=== PATIENT | female | born 2000 | race Two or more races ===

== ENCOUNTER 2023-02-24 12:16 | Day surgery (SDC) | payer OTHER ==
[2023-02-24 12:45] VITALS: BMI 29.4
[2023-02-24] MEDS ORDERED: hydrALAZINE 20 MG/ML VIAL SLOW IVP PRN (14:54)
== END 2023-02-24 14:54 | disposition home or self-care (01) ==
LOC: CSHLD/OP 12:16
PROVIDERS: ATTEND Obstetrics & Gynecology
DX: O47.1 False labor at or after 37 completed weeks of gestation (principal); Z79.899 Other long term (current) drug therapy; Z3A.39 39 weeks gestation of pregnancy
CPT/HCPCS: 99283

== ENCOUNTER 2023-03-05 03:36 | Day surgery (SDC) | payer OTHER ==
[2023-03-05] MEDS ORDERED: hydrALAZINE 20 MG/ML VIAL SLOW IVP PRN (04:06)
== END 2023-03-05 06:48 | disposition home or self-care (01) ==
LOC: CSHLD/OP 03:36
PROVIDERS: ATTEND Obstetrics & Gynecology
DX: O47.1 False labor at or after 37 completed weeks of gestation (principal); Z3A.40 40 weeks gestation of pregnancy; Z79.899 Other long term (current) drug therapy
CPT/HCPCS: 99283

== ENCOUNTER 2023-03-09 18:00 | Inpatient (IN) | payer MEDICAID, OTHER ==
[2023-03-10] MEDS ORDERED: Bupivacaine 0.25% HCL 30 ML VIAL ONE (08:00)
[2023-03-10] MEDS ORDERED: Penicillin G Potassium 5 MILL.UNITS in Sodium Chloride 0.9% 100 ML IVPB SCH (09:05)
[2023-03-10] MEDS ORDERED: Oxytocin 30 units/NS 500 ML 500 ML IV SCH ×4 (09:05→19:19)
[2023-03-10] MEDS ORDERED: HYDROcodone/Acetaminophen 5/325 mg Tablet PO PRN ×4 (09:05→19:19)
[2023-03-10] MEDS ORDERED: Ondansetron PF 4 MG/2 ML Vial IVP PRN ×3 (09:05→19:19)
[2023-03-10] MEDS ORDERED: Lidocaine 1% (PF) 30 ML VIAL SC PRN (09:05)
[2023-03-10] MEDS ORDERED: hydrALAZINE 20 MG/ML VIAL SLOW IVP PRN ×2 (09:05→19:19)
[2023-03-10] MEDS ORDERED: Ibuprofen 800 MG TAB PO PRN (09:05)
[2023-03-10] MEDS ORDERED: fentaNYL 50 mcg/mL 1 mL Vial SLOW IVP PRN (09:05)
[2023-03-10] MEDS ORDERED: Promethazine HCl 25 MG/ML VIAL IM PRN ×2 (09:05→14:25)
[2023-03-10] MEDS ORDERED: Oxytocin 30 units/NS 500 ML 500 ML ONE (09:18)
[2023-03-10] MEDS ORDERED: Penicillin G Potassium 5 MILL.UNITS VIAL ONE (09:18)
[2023-03-10] MEDS ORDERED: Sodium Chloride 0.9% 100 ML ONE (09:19)
[2023-03-10] MEDS: Lactated Ringer's 1,000 ML IV SCH ×2 (09:30→14:00)
[2023-03-10 10:02] VITALS: BMI 29.6
[2023-03-10 10:23] LABS: Hematocrit 33.3 % (34.9-44.5); Hemoglobin 10.8 g/dL (12.0-15.5); Mean Corpuscular HGB CONC 32.4 g/dL (32.0-36.0); Mean Corpuscular Hemoglobin 28.6 pg (27.0-33.0); Mean Corpuscular Volume 88.1 fl (81.6-98.3); Platelet Count 203 10x3/uL (150-450); RBC Distribution Width 13.7 % (11.5-14.5); Red Blood Cell (RBC) Count 3.78 10x6/uL (3.90-5.03); White Blood Cell (WBC) Count 11.1 10x3/uL (3.5-10.5)
[2023-03-10 10:59] LABS: HBSAg Index 0.21 S/CO (0-0.99); Hep B Surf Ag - L&D Non-Reactive S/CO (NonReactive)
[2023-03-10 11:00] LABS: Syphilis Antibody Nonreactive (Nonreactive); Syphilis Antibody Index 0.13 S/CO (<1.00 Non-Reactive)
[2023-03-10] MEDS ORDERED: fentaNYL/Ropivacaine Epidural 100 ML ONE (13:35)
[2023-03-10] MEDS: Penicillin G 2.5 MILL.units 2.5 MILL.UNITS in Premix 1 BAG IVPB SCH (14:00)
[2023-03-10] MEDS ORDERED: Acetaminophen 325 MG TAB PO PRN (14:25)
[2023-03-10] MEDS ORDERED: ePHEDrine Sulfate 50 MG/10 ML VIAL SLOW IVP PRN (14:25)
[2023-03-10] MEDS ORDERED: Moisturizing Cream (Eucerin) 113 GM JAR TOP PRN (14:25)
[2023-03-10] MEDS ORDERED: diphenhydrAMINE 50 MG/ML VIAL IVP PRN (14:25)
[2023-03-10] MEDS ORDERED: Lactated Ringer's 500 ML IV PRN (14:25)
[2023-03-10] MEDS ORDERED: Naloxone HCl 0.4 mg/ml Vial IVP PRN ×2 (14:25)
[2023-03-10] MEDS ORDERED: fentaNYL 2 mcg/Ropivacaine 0.2% Epidural 100 ML CADD EPIDURAL SCH (14:30)
[2023-03-10] MEDS ORDERED: Communication Order-Pharmacy FS SCH (14:30)
[2023-03-10] MEDS ORDERED: Lanolin Ointment 7 GM TUBE TOP PRN (19:19)
[2023-03-10] MEDS ORDERED: Benzocaine-Menthol 82.5 ML CAN TOP PRN (19:19)
[2023-03-10] MEDS ORDERED: Bisacodyl 10 MG SUPP PR PRN (19:19)
[2023-03-10] MEDS ORDERED: diphenhydrAMINE 25 MG CAP PO PRN (19:19)
[2023-03-10] MEDS ORDERED: Preparation H Ointment 28 GM TUBE PR PRN (19:19)
[2023-03-10] MEDS ORDERED: Milk Of Magnesia 30 ML UDCUP PO PRN (19:19)
[2023-03-10] MEDS ORDERED: Boostrix 0.5 ML (Tdap) VIAL (>/=7 yrs of age) IM ONE (19:19)
[2023-03-10] MEDS ORDERED: Ferrous Sulfate 325 MG TAB PO SCH (20:00)
[2023-03-10] MEDS: Docusate 100 MG CAP PO SCH (22:03)
[2023-03-10] MEDS: Ibuprofen 800 MG TAB PO SCH (22:03)
[2023-03-11] MEDS: Ibuprofen 800 MG TAB PO SCH ×3 (05:33→22:00)
[2023-03-11] MEDS: Penicillin G 2.5 MILL.units 2.5 MILL.UNITS in Premix 1 BAG IVPB SCH (07:48)
[2023-03-11] MEDS: Docusate 100 MG CAP PO SCH ×2 (09:18→22:00)
[2023-03-11] MEDS: Ferrous Sulfate 325 MG TAB PO SCH ×2 (09:18→17:08)
[2023-03-11] MEDS: Prenatal Vitamin 1 TAB PO SCH (09:18)
[2023-03-12] MEDS: Ibuprofen 800 MG TAB PO SCH ×2 (06:08→12:59)
[2023-03-12 07:56] VITALS: BP 134/77; TEMP 98.3
[2023-03-12] MEDS: Ferrous Sulfate 325 MG TAB PO SCH (08:59)
[2023-03-12] MEDS: Prenatal Vitamin 1 TAB PO SCH (09:00)
[2023-03-12] MEDS: Docusate 100 MG CAP PO SCH (09:00)
== END 2023-03-12 15:55 | disposition home or self-care (01) | DRG 807 ==
LOC: CSHLD 03-10 08:52 → CSHPED 03-10 20:15
PROVIDERS: ADMIT Obstetrics & Gynecology; ATTEND Obstetrics & Gynecology
PROC: 10E0XZZ Delivery of Products of Conception, External Approach (ICD-10-PCS; principal; 2023-03-10)
PROC: 0KQM0ZZ Repair Perineum Muscle, Open Approach (ICD-10-PCS; 2023-03-10)
PROC: 10907ZC Drainage of Amniotic Fluid, Therapeutic from Products of Conception, Via Natural or Artificial Opening (ICD-10-PCS; 2023-03-10)
DX: O48.1 Prolonged pregnancy (principal); Z37.0 Single live birth; O48.0 Post-term pregnancy; Z3A.41 41 weeks gestation of pregnancy; O70.1 Second degree perineal laceration during delivery
CPT/HCPCS: 36415; 51702; 85027; 86780; 86850; 86900; 86901; 87340; J2540; J2590; J3010; J3490; J7120; S0020

== ENCOUNTER 2023-03-20 18:56 | Emergency (ER) | payer OTHER ==
[2023-03-20] MEDS ORDERED: Acetaminophen 500 MG TAB ONE ×2 (19:40→19:58)
[2023-03-20 20:03] LABS: #Basophils 0.1 10x3/uL (0.0-0.2); #Eosinphils 0.1 10x3/uL (0.0-0.5); #Monocytes 0.8 10x3/uL (0.0-1.1); #Neutrophils 13.2 10x3/uL (1.5-8.4); %Basophils 0.3 % (0.0-2.0); %Eosinophils 0.4 % (0.0-6.0); %Lymphocytes 7.8 % (18.0-47.0); %Monocytes 5.4 % (0.0-10.0); %Neutrophils 85.8 % (40.0-75.0); Hematocrit 36.3 % (34.9-44.5); Hemoglobin 11.8 g/dL (12.0-15.5); Mean Corpuscular HGB CONC 32.5 g/dL (32.0-36.0); Mean Corpuscular Hemoglobin 28.5 pg (27.0-33.0); Mean Corpuscular Volume 87.7 fl (81.6-98.3); Platelet Count 227 10x3/uL (150-450); RBC Distribution Width 14.2 % (11.5-14.5); Red Blood Cell (RBC) Count 4.14 10x6/uL (3.90-5.03); White Blood Cell (WBC) Count 15.3 10x3/uL (3.5-10.5)
[2023-03-20 20:25] LABS: ALT (SGPT) 19 U/L (8-55); AST (SGOT) 19 U/L (5-34); Albumin 3.9 g/dL (3.5-5.0); Alkaline Phosphatase 150 U/L (40-110); Anion Gap 13 mmol/L (10-20); BUN (Urea Nitrogen) 15 mg/dL (7.0-18.7); Bilirubin, Total 0.5 mg/dL (0.2-1.2); Calc. Creatinine Clearance 0 mL/min (70-130); Calcium 9.6 mg/dL (7.8-10.44); Carbon Dioxide 22 mmol/L (22-29); Chloride 107 mmol/L (98-107); Estimated GFR 104; Globulin 3.1 g/dL (2.4-3.5); Glucose 96 mg/dL (70-105); Potassium 3.9 mmol/L (3.5-5.1); Sodium 138 mmol/L (136-145)
[2023-03-20 20:33] LABS: SARS-CoV-2 NAA Rapid Test Not Detected (NotDetected)
[2023-03-20] MEDS ORDERED: Cefepime 2 GM VIAL ONE (20:34)
[2023-03-20] MEDS ORDERED: Vancomycin 1 GM VIAL ONE (20:34)
[2023-03-20] MEDS ORDERED: Ketorolac Tromethamine 30 MG (1 mL) VIAL ONE (21:31)
[2023-03-20 21:33] LABS: Bilirubin Neg (Negative); Blood, Urine 150 (Negative); Clarity Slightly Cloudy (Clear); Glucose, Urine (Dipstick) Normal (Negative); Ketone, Urine Negative (Negative); Leukocyte 500 (Negative); Nitrite Negative (Negative); Protein, Urine (Dipstick) Negative (Neg-Trace); Urobilinogen Normal mg/dL (Less than 2)
[2023-03-20 21:42] LABS: Bacteria/HPF None Seen HPF (None Seen); CAUTI Indications for Culture Fever or rigors; Squamous Epithelial 0-3 HPF (0-3); Transitional Epithelial 0-3 HPF (None Seen); WBC/HPF 21-50 HPF (0-3)
[2023-03-20 21:43] LABS: Urine Culture Reflex Yes Yes
== END 2023-03-20 22:36 | disposition home or self-care (01) ==
LOC: CSHERS 18:56
DX: N10 Acute pyelonephritis (principal); N61.0 Mastitis without abscess
CPT/HCPCS: 36415; 80053; 81001; 83605; 85025; 87040; 87086; 96365; 96367; 96375; J0692; J1885; J3370